=== PATIENT | female | born 1965 | race Caucasian/White ===

== ENCOUNTER 2021-07-31 11:19 | Emergency (ER) | payer BC ==
[~2021-07-31] VITALS: Ht 154.9 cm; Wt 80.7 kg
[2021-07-31] MEDS ORDERED: DOXYCYCLINE HY100 MG PO (11:41)
== END 2021-07-31 12:01 | disposition home or self-care (01) ==
LOC: ER 11:50
DX: L02.219 Cutaneous abscess of trunk, unspecified (principal); I10 Essential (primary) hypertension; E11.9 Type 2 diabetes mellitus without complications
CPT/HCPCS: 99282